=== PATIENT | male | born 1990 | race Caucasian/White ===

== ENCOUNTER → 2016-04-08 | Outpatient (REF) | LOC: WSOH 10:00 | DX: Z02.89 Encounter for other administrative examinations (principal) ==

== ENCOUNTER → 2016-04-13 | Outpatient (REF) | LOC: WSOH 10:42 | DX: Z02.89 Encounter for other administrative examinations (principal) ==

== ENCOUNTER → 2016-09-01 | Outpatient (REF) | LOC: WSOH 13:48 | DX: Z02.4 Encounter for examination for driving license (principal) ==